=== PATIENT | female | born 2000 | race Caucasian/White ===

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

== ENCOUNTER 2021-12-13 15:39 | Inpatient (IN) | payer BC, OTHER, SELFPAY ==
[2021-12-13] MEDS: Ondansetron ODT 4 MG TAB.RAPDIS TRANSLINGU (16:35)
[2021-12-13] MEDS: Acetaminophen 325 MG TABLET 650 MG PO (16:36)
[2021-12-13] MEDS: LORazepam 1 MG TABLET 2 MG PO (16:36)
[2021-12-13 16:38] VITALS: BP 136/85; PULSE 94; RESP 18; TEMP 36.7; O2SAT 98
[2021-12-13 16:39] VITALS: BMI 29.7
--- NOTE | 2021-12-13 18:18 | PC.NURSE ---
Addendum entered by Alberta Powell 12/13/21 18:37: Patient reports SI currently, no plan, states she is able to let staff know if she feels unsafe. Patient has a past history of self harm (cutting), but not recently. She denies AH/VH, denies HI. Original Note: Patient is a 21 year old female, admitted from [facility] ED on a CV for SI. Diagnosis: Bipolar I, Alcohol Use Disorder. Patient reports she drinks approximately 12 -18 beers or a liter of hard alcohol 4-5 days a week while at home. 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 She denies any history of seizures with withdrawal, but states she will experience nausea, headaches, anxiety, and tremors. Last use was 6.29.22 at 2300, she had a BAL of 234 on arrival to [facility] ED. She reports using cocaine but denies any other drug use. Patient reports past history of hospitalizations after an OD of her medications. She states that depression 'has never gone away.' Per [employer] report, patient's father committed suicide when she was in 2nd grade. On arrival patient was pleasant, tearful, reported significant headache and nausea, dressed in a hospital rupinder. CIWA 15, patient medicated per CIWA protocol, and later reported feeling better , able to eat snack. Patient encouraged to drink fluids,, tolerating PO.
[2021-12-13 18:34] VITALS: BP 135/79; PULSE 113; RESP 20; O2SAT 96
--- NOTE | 2021-12-13 22:40 | P.HPPS_ITS ---
HPI Date of Service: 12/13/21 Chief Complaint: Mental Health Crisis Sources of Information: patient interviewed, chart reviewed and crisis/core team assessment reviewed HPI Subjective Notes: [place] Warning Healthcare Proxy: No Guardianship: No Medical Problems Affecting Mental Status: No Narrative: Lala is a 21 y.o. Female who carries a dx of Bipolar II DO. Pt states she has been suicidal for months, her moth found a note that she wrote months ago. Pt was intoxicated, consumed 5-6 ?white claws.? Pt reports she is adherent with prescribed psych meds and OP therapy appointments. Has been increasing her alcohol use.?Hx of brief inpatient admission to [facility] in 2020. I attempted to evaluate the pt this evening, however she is asleep and asked me to come back, however then declined to talk due to wanting to continue to sleep. 12/13/21: CMP wnl except glucose H 136. CBC wnl. HCG negative. BAL 234. Past Psychiatric History: -Hx of suicide attempt at age 16, was admitted to [place]. Hx of multiple inpatient admissions since adolescence, was at [facility] in 2020. Hx of PHP in 2016. Hx of OP therapy after her father when she was in 2nd grade at [employer]. -Hx of [facility] crisis eval in 2017 due to intentional overdose as a suicide attempt (zoloft, tylenol, aspirin, thyroid med). -Hx of SIB (superficial cutting), at least 3 overdose attempts as suicide attempt. No hx of medical interventions required. 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 Hx of attending [employer]. 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 Supports: friends, mother. -Her father when she was in second grade of cardiac issues, he was a recovering alcoholic. Substance History: -Cannabis: hx of use Diagnostics Vital Signs (24Hr): Vital Signs - 24 hr 12/13/21 16:38 12/13/21 18:34 Temperature 98.1 F Pulse Rate 94 113 H Respiratory Rate 18 20 Blood Pressure 136/85 135/79 Pulse Oximetry 98 96 Oxygen Delivery Method Room Air Room Air BMI result Body Mass Index 29.7 Meds/Allergies Meds Home Medications Medication Instructions Recorded Confirmed Type drospirenone 3 mg-ethinyl 1 tab PO DAILY 07/05/20 12/13/21 History estradiol 0.02 mg tablet (Consuelo (28)) lamotrigine 100 mg tablet,extended 100 mg PO DAILY 12/13/21 12/13/21 History release 24 hr methylphenidate HCl 18 mg 18 mg PO DAILY 12/13/21 12/13/21 History tablet,extended release 24 hr oxybutynin chloride 10 mg 10 mg PO DAILY 12/13/21 12/13/21 History tablet,extended release 24 hr Allergies Allergies Allergy/AdvReac Type Severity Reaction Status Date / Time pistachio nut Allergy Severe Anaphylaxis Verified 12/13/21 17:24 cashew nut Allergy Anaphylaxis Verified 12/13/21 17:25 tree nut Allergy Anaphylaxis Verified 07/05/20 14:06 Mental Status Exam Mental Status Exam Narrative: Pt is asleep, found under her blanket. Poor eye contact, inattentive. No Tics or Tremors. No abnormal involuntary movements. Calm but did not want to engage. Non-pressured speech, spontaneous with regular rate and rhythm, normal volume and prosody. No prolonged speech latency or dysarthria. Mood is depressed, affect is sedated. No imminent safety concerns. Denies psychotic sx. No known cognitive or memory impairment. Insight/ Judgment limited but adequate. Assessment & Plan Assessment & Plan (1) Bipolar II disorder: Status: Acute Code(s): F31.81 - Bipolar II disorder Plan Lala is a 21 y.o. Female who carries a dx of Bipolar II DO. Pt states she has been suicidal for months, her moth found a note that she wrote months ago. Pt was intoxicated, consumed 5-6 ?white claws.? Pt reports she is adherent with prescribed psych meds and OP therapy appointments. Has been increasing her alcohol use.? Plan: Continue CIWA monitoring and ativan PRN for alcohol withdrawal. Has had past benefit on mood stabilizers. Q15 min safety checks, CV Monitor response to medications. Monitor for safety in the milieu. Discharge on stabilization. Patient seen. Chart reviewed. Discussed with team. Obtain collateral contact info?as needed Patient educated on: other Reason for continued inpatient stay Substantial Risk for: harm to self and med/psych decompensation
[2021-12-13 23:20] VITALS: BP 134/76; PULSE 92; RESP 16; TEMP 36.8; O2SAT 99
[2021-12-13] MEDS: LORazepam 1 MG TABLET PO (23:33)
[2021-12-13] MEDS: Melatonin 3 MG TABLET 6 MG PO (23:33)
[2021-12-14 08:20] VITALS: BP 121/78; PULSE 87; RESP 16; TEMP 36.6; O2SAT 100
[2021-12-14] MEDS: lamoTRIgine 25 MG TABLET 75 MG PO (08:22)
[2021-12-14 09:09] LABS: MANUAL DIFF FLAG NO
[2021-12-14 09:11] LABS: Basophils Percent Auto 0.5 % (0-2); Eosinophils Absolute Auto 0.1 X10*3/uL (0.0-0.4); Eosinophils Percent Auto 1.4 % (0-4); Hematocrit 38.3 % (37.0-47.0); Hemoglobin 13.4 g/dl (12.0-16.0); Imm Gran Abs Auto 0.02 X10*3/uL (0.00-0.03); Imm Gran Pct Auto 0.3 % (0.0-0.4); Lymphocytes Absolute Auto 3.3 X10*3/uL (1.2-4.9); Lymphocytes Percent Auto 41.5 % (20-40); Mean Corpuscular Hemoglobin 30.7 pg (27.0-33.0); Mean Corpuscular Volume 87.6 fL (80.0-98.0); Monocytes Absolute Auto 0.5 X10*3/uL (0.1-1.2); Monocytes Percent Auto 6.6 % (2-11); Neutrophils Absolute Auto 3.9 x10*3/uL (2.0-8.3); Neutrophils Percent Auto 49.7 % (45-73); Platelet Count 266 X10*3/uL (160-400); Red Blood Count 4.37 X10*6/uL (4.20-5.50); Red Cell Distribution Width 11.5 % (11.0-16.0); White Blood Count 7.8 X10*3/uL (4.8-10.8)
[2021-12-14 09:31] LABS: Alanine Aminotransferase 18 U/L (0-31); Albumin Level 4.3 g/dL (3.5-5.0); Alkaline Phosphatase 58 U/L (39-117); Anion Gap 11 (12-20); Aspartate Amino Transferase 17 U/L (5-31); Bilirubin Direct < 0.2 mg/dL (0.0-0.5); Bilirubin Total 0.3 mg/dL (0.0-1.0); Blood Urea Nitrogen 17 mg/dL (9-16); Calcium 9.3 mg/dL (8.4-10.2); Carbon Dioxide 23 mmol/L (22-29); Chloride 107 mmol/L (96-108); Cholesterol 156 mg/dL; Creatinine Clr Calc Pharmacy 112.4; Estimated Glomerular Filt Rate > 60; Glucose Fasting 90 mg/dL (60-99); HDL Cholesterol 56 mg/dL; LDL Cholesterol Calculated 71 mg/dl; Potassium 4.2 mmol/L (3.3-5.1); Sodium 137 mmol/L (135-145); Total Protein 7.3 g/dL (6.5-8.0); Triglycerides 149 mg/dL
[2021-12-14 09:39] LABS: Estimated Average Glucose 88 mg/dL; Hemoglobin A1c % 4.7 %
[2021-12-14 09:51] LABS: Free T4 (Free Thyroxine) 1.16 ng/dL (0.71-1.85); Thyroid Stimulating Hormone 4.66 uIU/mL (0.32-4.0)
[2021-12-14 10:18] LABS: Folate 6.6 ng/mL (> or = 4.0); Vitamin B12 315 pg/mL (200-900)
[2021-12-14 11:39] VITALS: PULSE 92; RESP 17
[2021-12-14 12:40] LABS: UPreg QC Valid YES; Urine Pregnancy NEGATIVE (NEGATIVE)
--- NOTE | 2021-12-14 14:20 | HO.PM.IMPN ---
Subjective Subjective Date of Service: 12/14/21 Interval History: Routine admission physical. No acute medical issues Review of Systems Denies chest pain Denies shortness of breath Denies nausea vomiting diarrhea Denies fever chills Physical Exam Vital Signs: Vital Signs: Last Vital Signs Temp 97.9 F 12/14/21 08:20 Pulse 92 12/14/21 11:39 Resp 17 12/14/21 11:39 BP 121/78 12/14/21 08:20 Pulse Ox 100 12/14/21 08:20 O2 Del Method 12/14/21 08:20 BMI result Body Mass Index 29.7 Const: Other: No acute distress Resp: Other: Clear to auscultation bilaterally no rales rhonchi or wheezes Cardio: Other: No S4; positive S1-S2; no S3 murmurs rubs or gallops GI: Other: Soft nontender nondistended with normoactive bowel sounds Neuro: Other: Cranial nerves 2-12 were grossly intact as tested. Motor is 5/5 all extremities. Sensation is intact. Gait stable. Cognition appropriate Extrem: Other: No edema bilaterally Objective Data Active Medications Acetaminophen (Acetaminophen 325 Mg Tablet) 650 mg PO Q6H PRN PRN Reason: Headache/Pain Mild Scale (1-3) Last Admin: 12/13/21 16:36 Dose: 650 mg Documented By: ELEAZAR Al Hydroxide/Mg Hydroxide (Magnesium Hydrox/Alum Hydrox 30 Ml Oral.Susp) 30 ml PO Q6H PRN PRN Reason: Heartburn/Nausea Buspirone HCl (Buspirone Hcl 5 Mg Tablet) 5 mg PO TID [facility] Last Admin: 12/14/21 08:24 Dose: Not Given Documented By: ADIS Non-Admin Reason: Patient Refused Hydroxyzine HCl (Hydroxyzine Hcl 25 Mg Tablet) 25 mg PO BEDTIME PRN PRN Reason: Anxiety Ibuprofen (Ibuprofen 600 Mg Tablet) 600 mg PO Q6H PRN PRN Reason: aches and pains Lamotrigine (Lamotrigine 25 Mg Tablet) 75 mg PO DAILY [facility] Last Admin: 12/14/21 08:22 Dose: 75 mg Documented By: ADIS Lorazepam (Lorazepam 1 Mg Tablet) 1 mg PO Q2H PRN PRN Reason: CIWA 8-11 Last Admin: 12/13/21 23:33 Dose: 1 mg Documented By: KI Lorazepam (Lorazepam 1 Mg Tablet) 2 mg PO Q2H PRN PRN Reason: CIWA 12-15 Last Admin: 12/13/21 16:36 Dose: 2 mg Documented By: ELEAZAR Lorazepam (Lorazepam 1 Mg Tablet) 3 mg PO Q2H PRN PRN Reason: CIWA > 15. and call MDJesús Magnesium Hydroxide (Milk Of Magnesia 30 Ml Oral.Susp) 30 ml PO DAILY PRN PRN Reason: Constipation Melatonin (Melatonin 3 Mg Tablet) 6 mg PO BEDTIME PRN PRN Reason: insomnia Last Admin: 12/13/21 23:33 Dose: 6 mg Documented By: KI Nicotine Polacrilex (Nicotine Polacrilex 2 Mg Gum) 2 mg BUCCAL Q2H PRN PRN Reason: Nicotine Cravings Non-Formulary Medication (Drospirenone-Ethinyl Estradiol [Consuelo (28)]) 1 tab PO DAILY [facility] Non-Formulary Medication (Lamotrigine) 100 mg PO DAILY [facility] Non-Formulary Medication (Methylphenidate Hcl) 18 mg PO DAILY [facility] Ondansetron HCl (Ondansetron Odt 4 Mg Tab.Rapdis) 4 mg TRANSLINGU Q6H PRN PRN Reason: Nausea Last Admin: 12/13/21 16:35 Dose: 4 mg Documented By: ELEAZAR Oxybutynin Chloride (Oxybutynin Chloride Er 5 Mg Tab.Er.24) 10 mg PO DAILY SRINIVASA Last Admin: 12/14/21 08:22 Dose: 10 mg Documented By: ADIS Trazodone HCl (Trazodone Hcl 50 Mg Tablet) 50 mg PO BEDTIME PRN PRN Reason: Insomnia Labs CBC & Chem 7: 12/14/21 09:04 12/14/21 09:04 Labs: Laboratory Results - last 24 hr 12/14/21 12/14/21 12/14/21 09:04 09:04 09:04 MCV 87.6 MCH 30.7 MCHC 35.0 RDW 11.5 Plt Count 266 MPV 9.0 L Immature Gran % (Auto) 0.3 Neut % (Auto) 49.7 Lymph % (Auto) 41.5 H [place] % (Auto) 6.6 Eos % (Auto) 1.4 Baso % (Auto) 0.5 Lymph # (Auto) 3.3 [place] # (Auto) 0.5 Eos # (Auto) 0.1 Baso # (Auto) 0.0 Abs Immat Gran (auto) 0.02 Absolute Neuts (auto) 3.9 Absolute Nucleated RBC 0.000 Nucleated RBC % (auto) 0.0 Anion Gap 11 L Estim Creat Clear Calc 112.4 Estimated GFR > 60 Fasting Glucose 90 Estimat Average Glucose 88 Hemoglobin A1c % 4.7 Calcium 9.3 Total Bilirubin 0.3 Direct Bilirubin < 0.2 AST 17 ALT 18 Alkaline Phosphatase 58 Total Protein 7.3 Albumin 4.3 Triglycerides 149 Cholesterol 156 LDL Cholesterol, Calc 71 HDL Cholesterol 56 Vitamin B12 Folate TSH 4.66 H Free T4 1.16 Urine Test 12/14/21 12/14/21 09:04 12:05 MCV MCH MCHC RDW Plt Count MPV Immature Gran % (Auto) Neut % (Auto) Lymph % (Auto) [place] % (Auto) Eos % (Auto) Baso % (Auto) Lymph # (Auto) [place] # (Auto) Eos # (Auto) Baso # (Auto) Abs Immat Gran (auto) Absolute Neuts (auto) Absolute Nucleated RBC Nucleated RBC % (auto) Anion Gap Estim Creat Clear Calc Estimated GFR Fasting Glucose Estimat Average Glucose Hemoglobin A1c % Calcium Total Bilirubin Direct Bilirubin AST ALT Alkaline Phosphatase Total Protein Albumin Triglycerides Cholesterol LDL Cholesterol, Calc HDL Cholesterol Vitamin B12 315 Folate 6.6 TSH Free T4 Urine Test NEGATIVE Assessment and Plan (1) Bipolar II disorder: Status: Acute Assessment and Plan: Routine admission physical exam. There are no acute medical issues. Continue plan as ordered. Elevated TSH noted on admission labs; would not institute therapies in the acute setting. Can follow-up with PCP as outpatient (2) Depression: Status: Acute Quality Stroke Does the patient have a stroke diagnosis?: No VTE Prior VTE?: No VTE Risk Level:: Medical - low VTE Device Contraindication: Treatment Not Indicated VTE Drug Contraindication: Treatment Not Indicated
--- NOTE | 2021-12-14 16:34 | P.PNPSI_ITS ---
Subjective Subjective Date of Service: 12/14/21 Reason For Visit: Mental Health Crisis Subjective Notes: [place] Warning and Conditional Voluntary Healthcare Proxy: No Guardianship: No Medical Problems Affecting Mental Status: No Interim History: I evaluated the pt this evening and upon interview she reports ?I get really depressed but then it goes away? and pt feels embarrassed afterwards. Says she has been to the ED a ?handful of times? for making suicidal statements while inebriated. Says she wants to quit drinking, acknowledges that its ?making things worse.? Says at [employer], she ?couldnt wait to drink? and ?would drink so much.? However, also says ?it makes me really depressed to drink? and that she cares ?more about alcohol than friends.? Has been drinking since age 16. Feels it has ruined relationships. Says in the past she has been diagnosed with both Bipolar II DO and BPD, however feels BPD is more accurate, as she feels her emotional lability is ?more reactive than chemical? and impulsive/ reckless behaviors are in the context of drinking. Has hx of shoplifting, partying. States her anxiety is ?not good.? Depression comes and goes. Sleep is ?uneven,? 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 Pt continues to endorse passive SI, says ?if I , I wouldnt really give a shit.? Energy is low.? Medication Compliance: Yes Side effects from medications: No Attending Groups: Yes Review of Systems Acute medical concerns: No Medical Review of Systems: unchanged Mental Status Exam Mental Status Exam Narrative: A&O, casual attire, well groomed. Good eye contact, attentive. No Tics or Tremors. No abnormal involuntary movements. Calm, cooperative, engaged. Non- pressured speech, spontaneous with regular rate and rhythm, normal volume and prosody. No prolonged speech latency or dysarthria. Mood is depressed, affect is constricted, deflective. No imminent safety concerns. Denies psychotic sx. No known cognitive or memory impairment. Insight/ Judgment limited but adequate. Diagnostics Vital Signs (24Hr): Vital Signs - 24 hr 12/13/21 16:38 12/13/21 18:34 12/13/21 23:20 Temperature 98.1 F 98.3 F Pulse Rate 94 113 H 92 Respiratory Rate 18 20 16 Blood Pressure 136/85 135/79 134/76 Pulse Oximetry 98 96 99 Oxygen Delivery Method Room Air Room Air Room Air 12/14/21 08:20 12/14/21 11:39 Temperature 97.9 F Pulse Rate 87 92 Respiratory Rate 16 17 Blood Pressure 121/78 Pulse Oximetry 100 Oxygen Delivery Method Room Air BMI result Body Mass Index 29.7 Labs Results: 12/14/21 09:04 12/14/21 09:04 Labs: Laboratory Results - last 48 hr 12/14/21 12/14/21 12/14/21 09:04 09:04 09:04 WBC 7.8 RBC 4.37 Hgb 13.4 Hct 38.3 MCV 87.6 MCH 30.7 MCHC 35.0 RDW 11.5 Plt Count 266 MPV 9.0 L Immature Gran % (Auto) 0.3 Neut % (Auto) 49.7 Lymph % (Auto) 41.5 H Sully % (Auto) 6.6 Eos % (Auto) 1.4 Baso % (Auto) 0.5 Lymph # (Auto) 3.3 Sully # (Auto) 0.5 Eos # (Auto) 0.1 Baso # (Auto) 0.0 Abs Immat Gran (auto) 0.02 Absolute Neuts (auto) 3.9 Absolute Nucleated RBC 0.000 Nucleated RBC % (auto) 0.0 Sodium 137 Potassium 4.2 Chloride 107 Carbon Dioxide 23 Anion Gap 11 L BUN 17 H Creatinine 0.87 Estim Creat Clear Calc 112.4 Estimated GFR > 60 Fasting Glucose 90 Estimat Average Glucose 88 Hemoglobin A1c % 4.7 Calcium 9.3 Total Bilirubin 0.3 Direct Bilirubin < 0.2 AST 17 ALT 18 Alkaline Phosphatase 58 Total Protein 7.3 Albumin 4.3 Triglycerides 149 Cholesterol 156 LDL Cholesterol, Calc 71 HDL Cholesterol 56 Vitamin B12 Folate TSH 4.66 H Free T4 1.16 Urine Test 12/14/21 12/14/21 09:04 12:05 WBC RBC Hgb Hct MCV MCH MCHC RDW Plt Count MPV Immature Gran % (Auto) Neut % (Auto) Lymph % (Auto) Sully % (Auto) Eos % (Auto) Baso % (Auto) Lymph # (Auto) Sully # (Auto) Eos # (Auto) Baso # (Auto) Abs Immat Gran (auto) Absolute Neuts (auto) Absolute Nucleated RBC Nucleated RBC % (auto) Sodium Potassium Chloride Carbon Dioxide Anion Gap BUN Creatinine Estim Creat Clear Calc Estimated GFR Fasting Glucose Estimat Average Glucose Hemoglobin A1c % Calcium Total Bilirubin Direct Bilirubin AST ALT Alkaline Phosphatase Total Protein Albumin Triglycerides Cholesterol LDL Cholesterol, Calc HDL Cholesterol Vitamin B12 315 Folate 6.6 TSH Free T4 Urine Test NEGATIVE Medications Medications Current Medications Acetaminophen (Acetaminophen 325 Mg Tablet) 650 mg PO Q6H PRN PRN Reason: Headache/Pain Mild Scale (1-3) Last Admin: 12/13/21 16:36 Dose: 650 mg Al Hydroxide/Mg Hydroxide (Magnesium Hydrox/Alum Hydrox 30 Ml Oral.Susp) 30 ml PO Q6H PRN PRN Reason: Heartburn/Nausea Buspirone HCl (Buspirone Hcl 5 Mg Tablet) 5 mg PO TID [facility] Last Admin: 12/14/21 14:22 Dose: Not Given Hydroxyzine HCl (Hydroxyzine Hcl 25 Mg Tablet) 25 mg PO BEDTIME PRN PRN Reason: Anxiety Ibuprofen (Ibuprofen 600 Mg Tablet) 600 mg PO Q6H PRN PRN Reason: aches and pains Lamotrigine (Lamotrigine 25 Mg Tablet) 75 mg PO DAILY [facility] Last Admin: 12/14/21 08:22 Dose: 75 mg Lorazepam (Lorazepam 1 Mg Tablet) 1 mg PO Q2H PRN PRN Reason: CIWA 8-11 Last Admin: 12/13/21 23:33 Dose: 1 mg Lorazepam (Lorazepam 1 Mg Tablet) 2 mg PO Q2H PRN PRN Reason: CIWA 12-15 Last Admin: 12/13/21 16:36 Dose: 2 mg Lorazepam (Lorazepam 1 Mg Tablet) 3 mg PO Q2H PRN PRN Reason: CIWA > 15. and call Magnesium Hydroxide (Milk Of Magnesia 30 Ml Oral.Susp) 30 ml PO DAILY PRN PRN Reason: Constipation Melatonin (Melatonin 3 Mg Tablet) 6 mg PO BEDTIME PRN PRN Reason: insomnia Last Admin: 12/13/21 23:33 Dose: 6 mg Nicotine Polacrilex (Nicotine Polacrilex 2 Mg Gum) 2 mg BUCCAL Q2H PRN PRN Reason: Nicotine Cravings Non-Formulary Medication (Drospirenone-Ethinyl Estradiol [Consuelo (28)]) 1 tab PO DAILY [facility] Non-Formulary Medication (Lamotrigine) 100 mg PO DAILY [facility] Non-Formulary Medication (Methylphenidate Hcl) 18 mg PO DAILY [facility] Ondansetron HCl (Ondansetron Odt 4 Mg Tab.Rapdis) 4 mg TRANSLINGU Q6H PRN PRN Reason: Nausea Last Admin: 12/13/21 16:35 Dose: 4 mg Oxybutynin Chloride (Oxybutynin Chloride Er 5 Mg Tab.Er.24) 10 mg PO DAILY [facility] Last Admin: 12/14/21 08:22 Dose: 10 mg Trazodone HCl (Trazodone Hcl 50 Mg Tablet) 50 mg PO BEDTIME PRN PRN Reason: Insomnia Allergies Allergies Allergy/AdvReac Type Severity Reaction Status Date / Time pistachio nut Allergy Severe Anaphylaxis Verified 12/13/21 17:24 cashew nut Allergy Anaphylaxis Verified 12/13/21 17:25 tree nut Allergy Anaphylaxis Verified 07/05/20 14:06 Assessment & Plan Assessment & Plan (1) Bipolar II disorder: Status: Acute Code(s): F31.81 - Bipolar II disorder Assessment and Plan: Routine admission physical exam. There are no acute medical issues. Continue plan as ordered. Elevated TSH noted on admission labs; would not institute therapies in the acute setting. Can follow-up with PCP as outpatient (2) Depression: Status: Acute Code(s): F32.9 - Major depressive disorder, single episode, unspecified Plan Lala is a 21 y.o. Female who carries a dx of Bipolar II DO. Pt states she has been suicidal for months, her moth found a note that she wrote months ago. Pt was intoxicated, consumed 5-6 ?white claws.? Pt reports she is adherent with prescribed psych meds and OP therapy appointments. Has been increasing her alcohol use.? Plan: Continue CIWA monitoring and ativan PRN for alcohol withdrawal. Has had past benefit on mood stabilizers. -Pt reports hx of taking SSRIs but says they made her feel ?worse.? No longer taking buspar, will discontinue. Says she has been on lamictal ?forever,? now on lamictal ER 100 mg daily, no hx of rash. Says she is concerned that it lowers efficacy of control but she does not want to discontinue it as she feels like it is ?really helping.? Pt is no longer reporting s/s of alcohol withdrawal but has been utilizing ativan 1 mg PRN at bedtime for sleep. Understands she will not be discharged on a benzo due to alcohol abuse.?Will increase lamictal to 100 mg BID due to reported hx of benefit for depression. Reviewed SE and monitoring for SJS. Lamictal ER is not on formulary. -Pt wants to meet with recovery team to discuss resources for alcohol abuse in the community Q15 min safety checks, CV Monitor response to medications. Monitor for safety in the milieu. Discharge on stabilization. Patient seen. Chart reviewed. Discussed with team. Obtain collateral contact info?as needed I spent minutes with the patient and/or on the patient floor today, greater than?50% of which was spent counseling/coordinating care. Patient educated on: medication risk/benefits Reason for contiued inpatient stay Substantial Risk for: harm to self and med/psych decompensation
[2021-12-14] MEDS: Nicotine Polacrilex 2 MG GUM BUCCAL (17:30)
[2021-12-14] MEDS: Nicotine 21 MG PATCH.TD24 TRANSDERMA (19:25)
[2021-12-14 20:00] VITALS: BP 128/90; PULSE 87; RESP 16; TEMP 36.6; O2SAT 99
[2021-12-14] MEDS: lamoTRIgine 100 MG TABLET PO (22:30)
[2021-12-14] MEDS: Melatonin 3 MG TABLET 6 MG PO (22:31)
[2021-12-14] MEDS: LORazepam 1 MG TABLET PO (22:35)
--- NOTE | 2021-12-14 23:44 | PC.NURSE ---
Lala reported an increase in anxiety and light sensitivity with a low grade headache. Nurse did a CIWA assessment at that time and patient scored an 8. Patient given 1 mg Ativan prn.
[2021-12-15] MEDS: lamoTRIgine 100 MG TABLET PO ×2 (08:41→22:51)
[2021-12-15] MEDS: Nicotine 21 MG PATCH.TD24 TRANSDERMA (08:42)
[2021-12-15 08:44] VITALS: BP 123/90; PULSE 86; RESP 16; TEMP 36.6; O2SAT 100
[2021-12-15 20:31] VITALS: BP 139/82; PULSE 101; RESP 16; TEMP 36.7; O2SAT 96
[2021-12-15] MEDS: LORazepam 1 MG TABLET PO (22:51)
[2021-12-15] MEDS: Melatonin 3 MG TABLET 6 MG PO (22:51)
--- NOTE | 2021-12-15 23:00 | PC.NURSE ---
According to the website fda.gov, because Lala missed 2 doses of her control, she is to take 2 pills today and then 2 pills tomorrow to catch up .
--- NOTE | 2021-12-15 23:25 | HO.PSYCHPN ---
Subjective Subjective Date of Service: 12/15/21 Reason For Visit: Mental Health Crisis Subjective Notes: [place] Warning and Conditional Voluntary Healthcare Proxy: No Guardianship: No Medical Problems Affecting Mental Status: No Interim History: Patient seen and discussed with team. Patient evaluated today and upon interview she reports she slept okay, getting used to going to bed earlier, woke up early. No nightmares. Energy is okay. Discussed alcohol use disorder. Pt says she feels safe, Denies SI or urges to self harm. She declines meds for alcohol.?Tolerating lamictal increase, no s/s of rash. CIWA d/c'd as pt is not in withdrawal, will continue ativan 1 mg QHS for sleep due to reported benefit, however pt understands this will not be continued at discharge. In the milieu, patient is safe, often found reading in sensory room. Medication Compliance: Yes Side effects from medications: No Attending Groups: Intermittent Mental Status Exam Mental Status Exam Narrative: A&O. Pt in casual attire, overweight, NAD. Good eye contact, inattentive. No Tics or Tremors. No abnormal involuntary movements. Calm, cooperative, engaged. Non-pressured speech, spontaneous with regular rate and rhythm, normal volume and prosody. No prolonged speech latency or dysarthria. Mood is okay, affect is euthymic, bored. No imminent safety concerns. Denies psychotic sx. No known cognitive or memory impairment. Insight/ Judgment limited but adequate Diagnostics Vital Signs (24Hr): Vital Signs - 24 hr 12/15/21 08:44 12/15/21 20:31 Temperature 97.8 F 98.1 F Pulse Rate 86 101 H Respiratory Rate 16 16 Blood Pressure 123/90 H 139/82 Pulse Oximetry 100 96 Oxygen Delivery Method Room Air Room Air BMI result Body Mass Index 29.7 Labs Results: 12/14/21 09:04 12/14/21 09:04 Labs: Laboratory Results - last 48 hr 12/14/21 12/14/21 12/14/21 09:04 09:04 09:04 WBC 7.8 RBC 4.37 Hgb 13.4 Hct 38.3 MCV 87.6 MCH 30.7 MCHC 35.0 RDW 11.5 Plt Count 266 MPV 9.0 L Immature Gran % (Auto) 0.3 Neut % (Auto) 49.7 Lymph % (Auto) 41.5 H [place] % (Auto) 6.6 Eos % (Auto) 1.4 Baso % (Auto) 0.5 Lymph # (Auto) 3.3 [place] # (Auto) 0.5 Eos # (Auto) 0.1 Baso # (Auto) 0.0 Abs Immat Gran (auto) 0.02 Absolute Neuts (auto) 3.9 Absolute Nucleated RBC 0.000 Nucleated RBC % (auto) 0.0 Sodium 137 Potassium 4.2 Chloride 107 Carbon Dioxide 23 Anion Gap 11 L BUN 17 H Creatinine 0.87 Estim Creat Clear Calc 112.4 Estimated GFR > 60 Fasting Glucose 90 Estimat Average Glucose 88 Hemoglobin A1c % 4.7 Calcium 9.3 Total Bilirubin 0.3 Direct Bilirubin < 0.2 AST 17 ALT 18 Alkaline Phosphatase 58 Total Protein 7.3 Albumin 4.3 Triglycerides 149 Cholesterol 156 LDL Cholesterol, Calc 71 HDL Cholesterol 56 Vitamin B12 Folate TSH 4.66 H Free T4 1.16 Urine Test 12/14/21 12/14/21 09:04 12:05 WBC RBC Hgb Hct MCV MCH MCHC RDW Plt Count MPV Immature Gran % (Auto) Neut % (Auto) Lymph % (Auto) [place] % (Auto) Eos % (Auto) Baso % (Auto) Lymph # (Auto) [place] # (Auto) Eos # (Auto) Baso # (Auto) Abs Immat Gran (auto) Absolute Neuts (auto) Absolute Nucleated RBC Nucleated RBC % (auto) Sodium Potassium Chloride Carbon Dioxide Anion Gap BUN Creatinine Estim Creat Clear Calc Estimated GFR Fasting Glucose Estimat Average Glucose Hemoglobin A1c % Calcium Total Bilirubin Direct Bilirubin AST ALT Alkaline Phosphatase Total Protein Albumin Triglycerides Cholesterol LDL Cholesterol, Calc HDL Cholesterol Vitamin B12 315 Folate 6.6 TSH Free T4 Urine Test NEGATIVE Medications Medications Current Medications Acetaminophen (Acetaminophen 325 Mg Tablet) 650 mg PO Q6H PRN PRN Reason: Headache/Pain Mild Scale (1-3) Last Admin: 12/13/21 16:36 Dose: 650 mg Al Hydroxide/Mg Hydroxide (Magnesium Hydrox/Alum Hydrox 30 Ml Oral.Susp) 30 ml PO Q6H PRN PRN Reason: Heartburn/Nausea Hydroxyzine HCl (Hydroxyzine Hcl 25 Mg Tablet) 25 mg PO BEDTIME PRN PRN Reason: Anxiety Ibuprofen (Ibuprofen 600 Mg Tablet) 600 mg PO Q6H PRN PRN Reason: aches and pains Lamotrigine (Lamotrigine 100 Mg Tablet) 100 mg PO BID [facility] Last Admin: 12/15/21 22:51 Dose: 100 mg Lorazepam (Lorazepam 1 Mg Tablet) 1 mg PO BEDTIME [facility] Last Admin: 12/15/21 22:51 Dose: 1 mg Magnesium Hydroxide (Milk Of Magnesia 30 Ml Oral.Susp) 30 ml PO DAILY PRN PRN Reason: Constipation Melatonin (Melatonin 3 Mg Tablet) 6 mg PO BEDTIME PRN PRN Reason: insomnia Last Admin: 12/15/21 22:51 Dose: 6 mg Nicotine (Nicotine 21 Mg Patch.Td24) 21 mg TRANSDERMA DAILY [facility] Last Admin: 12/15/21 08:42 Dose: 21 mg Nicotine Polacrilex (Nicotine Polacrilex 2 Mg Gum) 2 mg BUCCAL Q2H PRN PRN Reason: Nicotine Cravings Last Admin: 12/14/21 17:30 Dose: 2 mg Pt Own ( Methylphenidate Er 18 Mg) 18 mg PO DAILY [facility] Last Admin: 12/15/21 16:36 Dose: Not Given Pt Own (Drospirenone -Ethinyl Estradiol [ Consuelo (28)] 1 Tab) 1 tab PO DAILY [facility] Last Admin: 12/15/21 22:59 Dose: 1 tab Ondansetron HCl (Ondansetron Odt 4 Mg Tab.Rapdis) 4 mg TRANSLINGU Q6H PRN PRN Reason: Nausea Last Admin: 12/13/21 16:35 Dose: 4 mg Oxybutynin Chloride (Oxybutynin Chloride Er 5 Mg Tab.Er.24) 10 mg PO DAILY [facility] Last Admin: 12/15/21 08:41 Dose: 10 mg Trazodone HCl (Trazodone Hcl 50 Mg Tablet) 50 mg PO BEDTIME PRN PRN Reason: Insomnia Allergies Allergies Allergy/AdvReac Type Severity Reaction Status Date / Time pistachio nut Allergy Severe Anaphylaxis Verified 12/13/21 17:24 cashew nut Allergy Anaphylaxis Verified 12/13/21 17:25 tree nut Allergy Anaphylaxis Verified 07/05/20 14:06 Assessment & Plan Assessment & Plan (1) Bipolar II disorder: Status: Acute Code(s): F31.81 - Bipolar II disorder Assessment and Plan: Routine admission physical exam. There are no acute medical issues. Continue plan as ordered. Elevated TSH noted on admission labs; would not institute therapies in the acute setting. Can follow-up with PCP as outpatient (2) Depression: Status: Acute Code(s): F32.9 - Major depressive disorder, single episode, unspecified Plan Lala is a 21 y.o. Female who carries a dx of Bipolar II DO. Pt states she has been suicidal for months, her moth found a note that she wrote months ago. Pt was intoxicated, consumed 5-6 ?white claws.? Pt reports she is adherent with prescribed psych meds and OP therapy appointments. Has been increasing her alcohol use.? Plan: Continue CIWA monitoring and ativan PRN for alcohol withdrawal. Has had past benefit on mood stabilizers. -Pt reports hx of taking SSRIs but says they made her feel ?worse.? No longer taking buspar, will discontinue. Says she has been on lamictal ?forever,? now on lamictal ER 100 mg daily, no hx of rash. Says she is concerned that it lowers efficacy of control but she does not want to discontinue it as she feels like it is ?really helping.? Pt is no longer reporting s/s of alcohol withdrawal but has been utilizing ativan 1 mg PRN at bedtime for sleep. Understands she will not be discharged on a benzo due to alcohol abuse.?Will increase lamictal to 100 mg BID due to reported hx of benefit for depression. Reviewed SE and monitoring for SJS. Lamictal ER is not on formulary. -Pt wants to meet with recovery team to discuss resources for alcohol abuse in the community 12/15: No changes, no rash Q15 min safety checks, CV Monitor response to medications. Monitor for safety in the milieu. Discharge on stabilization. Patient seen. Chart reviewed. Discussed with team. Obtain collateral contact info?as needed I spent minutes with the patient and/or on the patient floor today, greater than?50% of which was spent counseling/coordinating care. Patient educated on: medication risk/benefits Reason for contiued inpatient stay Substantial Risk for: harm to self and med/psych decompensation
[2021-12-16 09:20] VITALS: BP 137/93; PULSE 86; RESP 16; TEMP 36.6; O2SAT 97
[2021-12-16] MEDS: Nicotine 21 MG PATCH.TD24 TRANSDERMA (09:23)
[2021-12-16] MEDS: lamoTRIgine 100 MG TABLET PO ×2 (09:24→22:45)
--- NOTE | 2021-12-16 11:17 | PC.NURSE ---
During Shift report TW was advised by shift commander RN that one patient reported to staff that Lala had some sort of vape pen/ E cigarette with her on the unit. Lala asked by this RN and other RN if she had any sort of device on her person or in her room. Patient stated I told some other girl that I had one here, but I meant in my stuff in the closet. It is in my belongings . Upon looking through belongings it was found that patient has a JUUL pod/device in her belongings in the patient belongings closet.
--- NOTE | 2021-12-16 11:52 | HO.PSYCHPN ---
Subjective Subjective Date of Service: 12/16/21 Reason For Visit: Mental Health Crisis Subjective Notes: [place] Warning and Conditional Voluntary Healthcare Proxy: No Guardianship: No Medical Problems Affecting Mental Status: No Interim History: Patient seen and discussed with team. Patient evaluated today and upon interview she reports Im okay, finished reading [employer]. Says last night she talked herself into a panic attack, went into her room and cried for a couple hours, just depressed. Says she has been feeling very agitated, rates it as a 10/10 today. She is trying to avoid people as she can be mean when agitated. Hasnt had a drink in days, discussed this contributing to sx. Wants dual diagnosis/ co-occurring illness step-down program. Does not like remote services, doesnt want to go home. Says she feels safe. Medication Compliance: Yes Side effects from medications: No Attending Groups: Intermittent Review of Systems Acute medical concerns: No Medical Review of Systems: unchanged Mental Status Exam Mental Status Exam Narrative: A&O. Pt in casual attire, overweight, NAD. Good eye contact, inattentive. No Tics or Tremors. No abnormal involuntary movements. Calm, cooperative, engaged. Non-pressured speech, spontaneous with regular rate and rhythm, normal volume and prosody. No prolonged speech latency or dysarthria. Mood is depressed, affect is blunted, bored. No imminent safety concerns. Denies psychotic sx. No known cognitive or memory impairment. Insight/ Judgment limited but adequate Diagnostics Vital Signs (24Hr): Vital Signs - 24 hr 12/15/21 20:31 12/16/21 09:20 Temperature 98.1 F 97.9 F Pulse Rate 101 H 86 Respiratory Rate 16 16 Blood Pressure 139/82 137/93 H Pulse Oximetry 96 97 Oxygen Delivery Method Room Air Room Air BMI result Body Mass Index 29.7 Labs Results: 12/14/21 09:04 12/14/21 09:04 Labs: Laboratory Results - last 48 hr 12/14/21 12:05 Urine Test NEGATIVE Medications Medications Current Medications Acetaminophen (Acetaminophen 325 Mg Tablet) 650 mg PO Q6H PRN PRN Reason: Headache/Pain Mild Scale (1-3) Last Admin: 12/13/21 16:36 Dose: 650 mg Al Hydroxide/Mg Hydroxide (Magnesium Hydrox/Alum Hydrox 30 Ml Oral.Susp) 30 ml PO Q6H PRN PRN Reason: Heartburn/Nausea Hydroxyzine HCl (Hydroxyzine Hcl 25 Mg Tablet) 25 mg PO BEDTIME PRN PRN Reason: Anxiety Ibuprofen (Ibuprofen 600 Mg Tablet) 600 mg PO Q6H PRN PRN Reason: aches and pains Lamotrigine (Lamotrigine 100 Mg Tablet) 100 mg PO BID [facility] Last Admin: 12/16/21 09:24 Dose: 100 mg Lorazepam (Lorazepam 1 Mg Tablet) 1 mg PO BEDTIME [facility] Last Admin: 12/15/21 22:51 Dose: 1 mg Magnesium Hydroxide (Milk Of Magnesia 30 Ml Oral.Susp) 30 ml PO DAILY PRN PRN Reason: Constipation Melatonin (Melatonin 3 Mg Tablet) 6 mg PO BEDTIME PRN PRN Reason: insomnia Last Admin: 12/15/21 22:51 Dose: 6 mg Nicotine (Nicotine 21 Mg Patch.Td24) 21 mg TRANSDERMA DAILY [facility] Last Admin: 12/16/21 09:23 Dose: 21 mg Nicotine Polacrilex (Nicotine Polacrilex 2 Mg Gum) 2 mg BUCCAL Q2H PRN PRN Reason: Nicotine Cravings Last Admin: 12/14/21 17:30 Dose: 2 mg Pt Own ( Methylphenidate Er 18 Mg) 18 mg PO DAILY [facility] Last Admin: 12/16/21 09:23 Dose: 18 mg Pt Own (Drospirenone -Ethinyl Estradiol [ Consuelo (28)] 1 Tab) 1 tab PO DAILY [facility] Last Admin: 12/16/21 10:10 Dose: Not Given Ondansetron HCl (Ondansetron Odt 4 Mg Tab.Rapdis) 4 mg TRANSLINGU Q6H PRN PRN Reason: Nausea Last Admin: 12/13/21 16:35 Dose: 4 mg Oxybutynin Chloride (Oxybutynin Chloride Er 5 Mg Tab.Er.24) 10 mg PO DAILY [facility] Last Admin: 12/16/21 09:24 Dose: 10 mg Trazodone HCl (Trazodone Hcl 50 Mg Tablet) 50 mg PO BEDTIME PRN PRN Reason: Insomnia Allergies Allergies Allergy/AdvReac Type Severity Reaction Status Date / Time pistachio nut Allergy Severe Anaphylaxis Verified 12/13/21 17:24 cashew nut Allergy Anaphylaxis Verified 12/13/21 17:25 tree nut Allergy Anaphylaxis Verified 07/05/20 14:06 Assessment & Plan Assessment & Plan (1) Bipolar II disorder: Status: Acute Code(s): F31.81 - Bipolar II disorder (2) Depression: Status: Acute Code(s): F32.9 - Major depressive disorder, single episode, unspecified Plan Lala is a 21 y.o. Female who carries a dx of Bipolar II DO. Pt states she has been suicidal for months, her moth found a note that she wrote months ago. Pt was intoxicated, consumed 5-6 ?white claws.? Pt reports she is adherent with prescribed psych meds and OP therapy appointments. Has been increasing her alcohol use.? Plan: Continue CIWA monitoring and ativan PRN for alcohol withdrawal. Has had past benefit on mood stabilizers. -Pt reports hx of taking SSRIs but says they made her feel ?worse.? No longer taking buspar, will discontinue. Says she has been on lamictal ?forever,? now on lamictal ER 100 mg daily, no hx of rash. Says she is concerned that it lowers efficacy of control but she does not want to discontinue it as she feels like it is ?really helping.? Pt is no longer reporting s/s of alcohol withdrawal but has been utilizing ativan 1 mg PRN at bedtime for sleep. Understands she will not be discharged on a benzo due to alcohol abuse.?Will increase lamictal to 100 mg BID due to reported hx of benefit for depression. Reviewed SE and monitoring for SJS. Lamictal ER is not on formulary. -Pt wants to meet with recovery team prior to discharge to discuss resources for alcohol abuse in the community 12/15: No changes, no rash 12/16: Will start naltrexone for alcohol abuse urges Q15 min safety checks, CV Monitor response to medications. Monitor for safety in the milieu. Discharge on stabilization. Patient seen. Chart reviewed. Discussed with team. Obtain collateral contact info?as needed I spent minutes with the patient and/or on the patient floor today, greater than?50% of which was spent counseling/coordinating care. Patient educated on: medication risk/benefits and therapeutic strategies Reason for contiued inpatient stay Substantial Risk for: harm to self and med/psych decompensation
[2021-12-16 14:41] LABS: Appearance Urine HAZY; Color Urine YELLOW; Glucose Urine UA NEG (NEG); Leukocyte Esterase Urine NEG (NEG); Nitrite Urine NEG (NEG); PH 6.5 (5.0-8.0); Urine Blood NEG (NEG); Urine Ketones NEG (NEG); Urine Protein NEG (NEG-TRACE)
[2021-12-16 22:32] VITALS: BP 136/98; PULSE 96; RESP 16; TEMP 36.7; O2SAT 99
[2021-12-16] MEDS: Melatonin 3 MG TABLET 6 MG PO (22:45)
[2021-12-16] MEDS: hydrOXYzine HCL 25 MG TABLET PO (22:45)
[2021-12-16] MEDS: LORazepam 1 MG TABLET PO (22:49)
[2021-12-17 08:30] VITALS: BP 113/67; PULSE 91; RESP 16; TEMP 36.8; O2SAT 99
[2021-12-17] MEDS: Nicotine 21 MG PATCH.TD24 TRANSDERMA (09:10)
[2021-12-17] MEDS: lamoTRIgine 100 MG TABLET PO ×2 (09:12→23:26)
[2021-12-17] MEDS: Naltrexone HCl 50 MG TABLET PO (09:12)
--- NOTE | 2021-12-17 16:35 | MHC.RECOVSUP ---
Recovery Support note: Patient is a 21 year old French speaking female on M3. This communications writer met with patient to discuss alcohol use and recovery supports. Patient reports difficulty maintaining sobriety, stating she had a hard time going through one weekend without drinking. Discussed triggers and relapse prevention with patient. Patient reports her friends have expressed concern related to her drinking and that she found herself hiding her drinking from her friends. Patient reports a desire to completely abstain from alcohol, stating that she has tried to moderate her drinking however finds that once she starts drinking she is unable to limit it. Patient reports she has a therapist and has attended AA meetings in the past while in treatment. Patient reports she could see meetings being helpful however finds the samaritan component to AA difficult to get around. Discussed [facility] and the [facility] with patient. Patient reports she has done the [place] through [facility] and reports that she is not a fan of virtual groups like this. Discussed the hybrid IOP through [facility]. Patient started naltrexone today. Discussed with patient how this can be a useful line of support to her recovery. Discussed recovery coaching with patient. Patient is open to having a data recovery planner check in with patient while inpatient. Patient aware that a learning coach may not be available to meet with her prior to discharge due to the holiday. A referral will be made for a learning coach to contact patient after discharge.
--- NOTE | 2021-12-17 19:25 | MHC.RECOVSUP ---
? Reason for consult:Recovery Support o Current location:[facility] o Identified substance use concern:AUD ? ? ?Intervention: o Community resources provided o Harm reduction discussion ? Additional information:?Patient consultation with Bright Gunn before initial contact. Patient is a 21 year old woman suffering from alcoholism since the age of 14. Patient's father at an early age from complications of AUD and alcoholism runs as far back to her grandparent parents. Joana has disclosed past trauma and is struggling with being abstinent from alcohol and also shared her abuse to other mind altering substances. We were able to review harm reduction strategies with community outreach services including AA. Patient discloses that he mother is looking into a residential facility at this time for her. I left her AA meeting guide and a referral for a Overnight Babysitter with Audrey. Patient will follow up with resources tomorrow after discharge.
[2021-12-17] MEDS: Acetaminophen 325 MG TABLET 650 MG PO (22:02)
[2021-12-17] MEDS: Melatonin 3 MG TABLET 6 MG PO (23:26)
[2021-12-17] MEDS: hydrOXYzine HCL 25 MG TABLET PO (23:26)
[2021-12-17] MEDS: LORazepam 1 MG TABLET PO (23:26)
--- NOTE | 2021-12-17 23:43 | P.PNPSI_ITS ---
Subjective Subjective Date of Service: 12/17/21 Reason For Visit: Mental Health Crisis Subjective Notes: [place] Warning Interim History: Patient seen and discussed with team. Patient evaluated today and upon interview pt reports she has been alright. She met with the pitching coach, says this went well. Has been sitting in sensory room, reading. Denies rash. Mood is okay, content. She continues to be interested in a substance abuse step down. Sleep is okay. Still has urges to drink and says these make me even more agitated. On naltrexone, no benefit. De nies SI/SIB/HI. Says she feels safe. Medication Compliance: Yes Side effects from medications: No Attending Groups: Intermittent Review of Systems Acute medical concerns: No Medical Review of Systems: unchanged Mental Status Exam Mental Status Exam Narrative: A&O. Pt in casual attire, overweight, NAD. Good eye contact, inattentive. No Tics or Tremors. No abnormal involuntary movements. Calm, cooperative, engaged. Non-pressured speech, spontaneous with regular rate and rhythm, normal volume and prosody. No prolonged speech latency or dysarthria. Mood is okay, affect is blunted, bored. No imminent safety concerns. Denies psychotic sx. No known cognitive or memory impairment. Insight/ Judgment limited but adequate Diagnostics Vital Signs (24Hr): BMI result Body Mass Index 29.7 Labs Results: 12/14/21 09:04 12/14/21 09:04 Labs: Laboratory Results - last 48 hr 12/16/21 14:10 Urine Color YELLOW Urine Appearance HAZY Urine pH 6.5 Ur Specific [place] 1.010 Urine Protein NEG Urine Glucose (UA) NEG Urine Ketones NEG Urine Blood NEG Urine Nitrite NEG Ur Leukocyte Esterase NEG Medications Medications Current Medications Acetaminophen (Acetaminophen 325 Mg Tablet) 650 mg PO Q6H PRN PRN Reason: Headache/Pain Mild Scale (1-3) Last Admin: 12/17/21 22:02 Dose: 650 mg Al Hydroxide/Mg Hydroxide (Magnesium Hydrox/Alum Hydrox 30 Ml Oral.Susp) 30 ml PO Q6H PRN PRN Reason: Heartburn/Nausea Hydroxyzine HCl (Hydroxyzine Hcl 25 Mg Tablet) 25 mg PO BEDTIME PRN PRN Reason: Anxiety Last Admin: 12/17/21 23:26 Dose: 25 mg Ibuprofen (Ibuprofen 600 Mg Tablet) 600 mg PO Q6H PRN PRN Reason: aches and pains Lamotrigine (Lamotrigine 100 Mg Tablet) 100 mg PO BID [facility] Last Admin: 12/18/21 08:57 Dose: 100 mg Lorazepam (Lorazepam 1 Mg Tablet) 1 mg PO BEDTIME [facility] Last Admin: 12/17/21 23:26 Dose: 1 mg Magnesium Hydroxide (Milk Of Magnesia 30 Ml Oral.Susp) 30 ml PO DAILY PRN PRN Reason: Constipation Melatonin (Melatonin 3 Mg Tablet) 6 mg PO BEDTIME PRN PRN Reason: insomnia Last Admin: 12/17/21 23:26 Dose: 6 mg Naltrexone HCl (Naltrexone Hcl 50 Mg Tablet) 50 mg PO DAILY [facility] Last Admin: 12/18/21 08:57 Dose: 50 mg Nicotine (Nicotine 21 Mg Patch.Td24) 21 mg TRANSDERMA DAILY [facility] Last Admin: 12/18/21 08:57 Dose: 21 mg Nicotine Polacrilex (Nicotine Polacrilex 2 Mg Gum) 2 mg BUCCAL Q2H PRN PRN Reason: Nicotine Cravings Last Admin: 12/14/21 17:30 Dose: 2 mg Pt Own ( Methylphenidate Er 18 Mg) 18 mg PO DAILY [facility] Last Admin: 12/18/21 08:57 Dose: 18 mg Pt Own (Drospirenone -Ethinyl Estradiol [ Consuelo (28)] 1 Tab) 1 tab PO BEDTIME [facility] Last Admin: 12/17/21 23:26 Dose: 1 tab Ondansetron HCl (Ondansetron Odt 4 Mg Tab.Rapdis) 4 mg TRANSLINGU Q6H PRN PRN Reason: Nausea Last Admin: 12/13/21 16:35 Dose: 4 mg Oxybutynin Chloride (Oxybutynin Chloride Er 5 Mg Tab.Er.24) 10 mg PO DAILY [facility] Last Admin: 12/18/21 08:57 Dose: 10 mg Trazodone HCl (Trazodone Hcl 50 Mg Tablet) 50 mg PO BEDTIME PRN PRN Reason: Insomnia Allergies Allergies Allergy/AdvReac Type Severity Reaction Status Date / Time pistachio nut Allergy Severe Anaphylaxis Verified 12/13/21 17:24 cashew nut Allergy Anaphylaxis Verified 12/13/21 17:25 tree nut Allergy Anaphylaxis Verified 07/05/20 14:06 Assessment & Plan Assessment & Plan (1) Bipolar II disorder: Status: Acute Code(s): F31.81 - Bipolar II disorder (2) Depression: Status: Acute Code(s): F32.9 - Major depressive disorder, single episode, unspecified Plan Lala is a 21 y.o. Female who carries a dx of Bipolar II DO. Pt states she has been suicidal for months, her moth found a note that she wrote months ago. Pt was intoxicated, consumed 5-6 ?white claws.? Pt reports she is adherent with prescribed psych meds and OP therapy appointments. Has been increasing her alcohol use.? Plan: Continue CIWA monitoring and ativan PRN for alcohol withdrawal. Has had past benefit on mood stabilizers. -Pt reports hx of taking SSRIs but says they made her feel ?worse.? No longer taking buspar, will discontinue. Says she has been on lamictal ?forever,? now on lamictal ER 100 mg daily, no hx of rash. Says she is concerned that it lowers efficacy of control but she does not want to discontinue it as she feels like it is ?really helping.? Pt is no longer reporting s/s of alcohol withdrawal but has been utilizing ativan 1 mg PRN at bedtime for sleep. Understands she will not be discharged on a benzo due to alcohol abuse.?Will increase lamictal to 100 mg BID due to reported hx of benefit for depression. Reviewed SE and monitoring for SJS. Lamictal ER is not on formulary. -Pt wants to meet with recovery team prior to discharge to discuss resources for alcohol abuse in the community 7/2: No changes, no rash 73: Will start naltrexone for alcohol abuse urges 7: No med changes, no rash, met with pitching coach, interested in step down that focuses on co-occurring illness for alcohol abuse Q15 min safety checks, CV Monitor response to medications. Monitor for safety in the milieu. Discharge on stabilization. Patient seen. Chart reviewed. Discussed with team. Obtain collateral contact info?as needed I spent minutes with the patient and/or on the patient floor today, greater than?50% of which was spent counseling/coordinating care. Patient educated on: medication risk/benefits, substance abuse and therapeutic strategies Reason for contiued inpatient stay Substantial Risk for: med/psych decompensation
[2021-12-18 08:45] VITALS: BP 131/79; PULSE 111; RESP 16; TEMP 36.7; O2SAT 98
[2021-12-18] MEDS: Nicotine 21 MG PATCH.TD24 TRANSDERMA (08:57)
[2021-12-18] MEDS: lamoTRIgine 100 MG TABLET PO (08:57)
[2021-12-18] MEDS: Naltrexone HCl 50 MG TABLET PO (08:57)
--- NOTE | 2021-12-18 11:42 | PM.PSYDC ---
DS: Providers Provider Date of Service: 12/18/21 Date of admission: 12/13/21 15:39 Primary care physician: Uzma Sagastume MD Consults: 12/13/21 18:16 Consult to Hospitalist Routine Consulting Provider: Hospitalist Reason For Exam: H/P; Admitted from another facility DS: Diagnosis Discharge Diagnosis (1) Bipolar II disorder: Status: Acute (2) Depression: Status: Acute DS: Medications Discharge Medications Home Medications: Home Medications Medication Instructions Recorded Confirmed drospirenone 3 mg-ethinyl 1 tab PO DAILY 07/05/20 12/13/21 estradiol 0.02 mg tablet (Consuelo (28)) methylphenidate HCl 18 mg 18 mg PO DAILY 12/13/21 12/13/21 tablet,extended release 24 hr oxybutynin chloride 10 mg 10 mg PO DAILY 12/13/21 12/13/21 tablet,extended release 24 hr Previous Rx's Medication Instructions Recorded lamotrigine 100 mg tablet,extended 100 mg PO BID 30 days #60 tabs 12/18/21 release 24 hr naltrexone 50 mg tablet 50 mg PO DAILY 30 days #30 tabs 12/18/21 Mental Status Exam Mental Status Exam Narrative: A&O. Pt in casual attire, overweight, NAD. Good eye contact, inattentive. No Tics or Tremors. No abnormal involuntary movements. Calm, cooperative. Non-pressured speech, spontaneous with regular rate and rhythm, normal volume and prosody. No prolonged speech latency or dysarthria. Mood is OK, affect is constricted. no SI/SIBI/HI/AVH. No imminent safety concerns. No known cognitive or memory impairment. Insight/ Judgment limited but adequate Data Data Completed and Pending Completed studies during hospitalization [Text1]: 12/14/21 12/14/21 12/14/21 09:04 09:04 09:04 WBC 7.8 RBC 4.37 Hgb 13.4 Hct 38.3 MCV 87.6 MCH 30.7 MCHC 35.0 RDW 11.5 Plt Count 266 MPV 9.0 L Immature Gran % (Auto) 0.3 Neut % (Auto) 49.7 Lymph % (Auto) 41.5 H [place] % (Auto) 6.6 Eos % (Auto) 1.4 Baso % (Auto) 0.5 Lymph # (Auto) 3.3 [place] # (Auto) 0.5 Eos # (Auto) 0.1 Baso # (Auto) 0.0 Abs Immat Gran (auto) 0.02 Absolute Neuts (auto) 3.9 Absolute Nucleated RBC 0.000 Nucleated RBC % (auto) 0.0 Sodium 137 Potassium 4.2 Chloride 107 Carbon Dioxide 23 Anion Gap 11 L BUN 17 H Creatinine 0.87 Estim Creat Clear Calc 112.4 Estimated GFR > 60 Fasting Glucose 90 Estimat Average Glucose 88 Hemoglobin A1c % 4.7 Calcium 9.3 Total Bilirubin 0.3 Direct Bilirubin < 0.2 AST 17 ALT 18 Alkaline Phosphatase 58 Total Protein 7.3 Albumin 4.3 Triglycerides 149 Cholesterol 156 LDL Cholesterol, Calc 71 HDL Cholesterol 56 Vitamin B12 Folate TSH 4.66 H Free T4 1.16 Urine Color Urine Appearance Urine pH Ur Specific [place] Urine Protein Urine Glucose (UA) Urine Ketones Urine Blood Urine Nitrite Ur Leukocyte Esterase Urine Test 12/14/21 12/14/21 12/16/21 09:04 12:05 14:10 WBC RBC Hgb Hct MCV MCH MCHC RDW Plt Count MPV Immature Gran % (Auto) Neut % (Auto) Lymph % (Auto) [place] % (Auto) Eos % (Auto) Baso % (Auto) Lymph # (Auto) [place] # (Auto) Eos # (Auto) Baso # (Auto) Abs Immat Gran (auto) Absolute Neuts (auto) Absolute Nucleated RBC Nucleated RBC % (auto) Sodium Potassium Chloride Carbon Dioxide Anion Gap BUN Creatinine Estim Creat Clear Calc Estimated GFR Fasting Glucose Estimat Average Glucose Hemoglobin A1c % Calcium Total Bilirubin Direct Bilirubin AST ALT Alkaline Phosphatase Total Protein Albumin Triglycerides Cholesterol LDL Cholesterol, Calc HDL Cholesterol Vitamin B12 315 Folate 6.6 TSH Free T4 Urine Color YELLOW Urine Appearance HAZY Urine pH 6.5 Ur Specific [place] 1.010 Urine Protein NEG Urine Glucose (UA) NEG Urine Ketones NEG Urine Blood NEG Urine Nitrite NEG Ur Leukocyte Esterase NEG Urine Test NEGATIVE DS: Summary Hospital Course Hospital Course: per 12/13 admission note: Lala is a 21 y.o. Female who carries a dx of Bipolar II DO. Pt states she has been suicidal for months, her moth found a note that she wrote months ago. Pt was intoxicated, consumed 5-6 ?white claws.? Pt reports she is adherent with prescribed psych meds and OP therapy appointments. Has been increasing her alcohol use.?Hx of brief inpatient admission to [facility] in 2020. I attempted to evaluate the pt this evening, however she is asleep and asked me to come back, however then declined to talk due to wanting to continue to sleep. 12/13/21: CMP wnl except glucose H 136. CBC wnl. HCG negative. BAL 234. Past Psychiatric History: -Hx of suicide attempt at age 16, was admitted to [facility]. Hx of multiple inpatient admissions since adolescence, was at [facility] in 2020. Hx of PHP in 2016. Hx of OP therapy after her father when she was in 2nd grade at [employer].? -Hx of [facility] crisis eval in 2017 due to intentional overdose as a suicide attempt (zoloft, tylenol, aspirin, thyroid med).? -Hx of SIB (superficial cutting), at least 3 overdose attempts as suicide attempt. No hx of medical interventions required.? -Past med trial: zoloft, wellbutrin, lamictal -Pt was not admitted inpatient [place] [facility], this was a [facility] admission. -Past meds: Celexa, prozac, buspar, amitriptyline, abilify with lamictal for a while (felt abilify really helped, unclear why this was discontinued). 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 Hx of attending [employer]. 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 Supports: friends, mother.? -Her father when she was in second grade of cardiac issues, he was a recovering alcoholic. Substance History: -Cannabis: hx of use 12/14: I evaluated the pt this evening and upon interview she reports ?I get really depressed but then it goes away? and pt feels embarrassed afterwards. Says she has been to the ED a ?handful of times? for making suicidal statements while inebriated. Says she wants to quit drinking, acknowledges that its ?making things worse.? Says at [employer], she ?couldnt wait to drink? and ?would drink so much.? However, also says ?it makes me really depressed to drink? and that she cares ?more about alcohol than friends.? Has been drinking since age 16. Feels it has ruined relationships. Says in the past she has been diagnosed with both Bipolar II DO and BPD, however feels BPD is more accurate, as she feels her emotional lability is ?more reactive than chemical? and impulsive/ reckless behaviors are in the context of drinking. Has hx of shoplifting, partying. States her anxiety is ?not good.? Depression comes and goes. Sleep is ?uneven,? 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 Pt continues to endorse passive SI, says ?if I , I wouldnt really give a shit.? Energy is low.? 12/15: Patient evaluated today and upon interview she reports she slept okay, getting used to going to bed earlier, woke up early. No nightmares. Energy is okay. ? Discussed alcohol use disorder. Pt says she feels safe, Denies SI or urges to self harm. She declines meds for alcohol.?Tolerating lamictal increase, no s/s of rash. CIWA d/c'd as pt is not in withdrawal, will continue ativan 1 mg QHS for sleep due to reported benefit, however pt understands this will not be continued at discharge. 12/16: Patient evaluated today and upon interview she reports Im okay, finished reading Palestinian appssavvy. Says last night she talked herself into a panic attack, went into her room and cried for a couple hours, just depressed. Says she has been feeling very agitated, rates it as a 10/10 today. She is trying to avoid people as she can be mean when agitated. Hasnt had a drink in days, discussed this contributing to sx. Wants dual diagnosis/ co-occurring illness step-down program. Does not like remote services, doesnt want to go home. Says she feels safe. Precis: Lala is a 21 y.o. Female who carries a dx of Bipolar II DO. Pt states she has been suicidal for months, her mother found a note that she wrote months ago. Pt was intoxicated, consumed 5-6 ?white claws.? Pt reports she is adherent with prescribed psych meds and OP therapy appointments. Has been increasing her alcohol use.? 12/13 and 12/14: Continue CIWA monitoring and ativan PRN for alcohol withdrawal. Has had past benefit on mood stabilizers. Pt reports hx of taking SSRIs but says they made her feel ?worse.? No longer taking buspar, will discontinue. Says she has been on lamictal ?forever,? now on lamictal ER 100 mg daily, no hx of rash. Says she is concerned that it lowers efficacy of control but she does not want to discontinue it as she feels like it is ?really helping.? Pt is no longer reporting s/s of alcohol withdrawal but has been utilizing ativan 1 mg PRN at bedtime for sleep. Understands she will not be discharged on a benzo due to alcohol abuse.?Will increase lamictal to 100 mg BID due to reported hx of benefit for depression. Reviewed SE and monitoring for SJS. Lamictal ER is not on formulary. Pt wants to meet with recovery team prior to discharge to discuss resources for alcohol abuse in the community. 12/15: No changes, no rash 12/16: Will start naltrexone for alcohol abuse urges. 12/18: discharged to home per her request. meds reviewed, reconciled, and prescribed. Time Spent with Patient Time attestation: Total time spent providing and/or coordinating discharge services: Discharge Plan Discharge Patient Disposition: Home, Self-Care Discharge Diagnosis: Bipolar II Disorder, MRE Depressed Alcohol Use Disorder Tobacco Use Disorder Referrals: Barbie Weinstein - (Therapy) [Other] - 12/28/21 11:00 am (TELEHEALTH APPOINTMENT -Please follow up with your therapist, Barbie, to see if she would be willing to do in person appointments in the future. ) Dr. Krystal Fry (Psychiatry) [Other] - 01/08/22 12:30 pm (Facetime Appointment) [facility] [Other] - 1 Week (Please follow up with Sheri or Aurea from the program regarding the waiting list) Uzma Sagastume MD [Primary Care Provider] - 12/24/21 2:10 pm Discharge Medications: New naltrexone 50 mg Tablet 50 mg PO DAILY 30 Days Qty: 30 0RF Continued drospirenone-ethinyl estradiol [Consuelo (28)] 3-0.02 mg Tablet 1 tab PO DAILY oxybutynin chloride 10 mg Tablet Extended Release 24 Hr 10 mg PO DAILY methylphenidate HCl 18 mg Tablet Extended Release 24hr 18 mg PO DAILY Changed lamotrigine 100 mg Tablet Extended Release 24hr 100 mg PO BID 30 Days Qty: 60 0RF Discharge Orders: Discharge Order (Routine); Ordered 12/18/21 Ordered By: Cyrus Monteiro Diet: Advance to usual diet Activity on Discharge: As tolerated Stand Alone Forms: Patient Portal Discharge page, Community Support Care Plan Goals: remain safe and sober in the outpatient treatment setting Health Concerns: tobacco use binge drinking Plan of Treatment: take medications as prescribed, attend appointments as scheduled Assessment: not at imminent risk of harm to self or others Discharge Date/Time: 12/18/21 13:04
--- NOTE | 2021-12-18 12:49 | PC.NURSE ---
Lala is alert, fully oriented, pleasant and cooperative with discharge process. She denies ideation, plan or intent to harm self or others. She verbalizes understanding of prescribed medications and upcoming appointments. She denies physical complaint. Lala verbalizes understanding of how to access help during crisis including crisis number, call 911 or go to ed;
== END 2021-12-18 13:04 | disposition home or self-care (01) | DRG 753 ==
PROVIDERS: Registered Nurse; Admitting Provider Psychiatry & Neurology Psychiatry; PCP Pediatrics; Visit Provider Psychiatry & Neurology Psychiatry
DX: F31.81 Bipolar II disorder (principal); R45.851 Suicidal ideations; F17.210 Nicotine dependence, cigarettes, uncomplicated; Z71.6 Tobacco abuse counseling; F17.290 Nicotine dependence, other tobacco product, uncomplicated; Z79.3 Long term (current) use of hormonal contraceptives; Z79.899 Other long term (current) drug therapy
CPT/HCPCS: 36415; 80053; 80061; 80076; 81003; 81025; 82607; 82746; 83036; 84439; 84443; 85025